=== PATIENT | female | born 1955 | race Caucasian/White ===

== ENCOUNTER → 2016-09-13 | Outpatient (REF) | payer OTHER | LOC: M SFHCWAGY 09:10 | PROVIDERS: ATTEND Nurse Practitioner Women's Health | DX: Z12.4 Encounter for screening for malignant neoplasm of cervix (principal) ==

== ENCOUNTER → 2016-09-13 | Outpatient (CLI) | payer OTHER ==
--- NOTE | 2016-09-13 11:27 | REPMRS ---
Patient History The patient states she had a clinical breast exam in 08/2016. Patient is postmenopausal and has history of basal cell skin cancer at age 47. Family history of prostate cancer in father at age 85. Digital Woman Screen Mammo: September 13, 2016 - Exam #: [id number] Bilateral CC and MLO view(s) were taken. Technologist: Mindy Fitzgerald, Technologist Prior study comparison: September 09, 2015, digital woman screen mammo performed at [facility] to [facility]. September 03, 2014, digital woman screen mammo performed at [facility]. September 03, 2010, bilateral bilat screen digital mammo performed at [facility] to [facility]. FINDINGS: The breast tissue is heterogeneously dense. This may lower the sensitivity of mammography. There is a moderate amount of heterogeneously dense fibroglandular tissue which is fairly symmetric. There is no interval development of dominant mass, architectural distortion, or clustered microcalcification typical of malignancy. There has been no change in the appearance of the mammogram from the prior studies. ASSESSMENT: BI-RADS/ACR category 1 mammogram. Negative. Recommendation Routine screening mammogram of both breasts in 1 year (for women over age 40). This mammogram was interpreted with the aid of an FDA-approved computer-aided dectection system. Electronically Signed By: Gabriele Escamilla MD 09/13/16 1125
== END ==
LOC: M WHC 08:54
PROVIDERS: ATTEND Nurse Practitioner Women's Health
DX: Z12.31 Encounter for screening mammogram for malignant neoplasm of breast (principal)

== ENCOUNTER → 2017-09-15 | Outpatient (CLI) | payer OTHER | LOC: M WHC 09:11 | DX: M81.0 Age-related osteoporosis without current pathological fracture (principal) ==

== ENCOUNTER → 2017-09-15 | Outpatient (CLI) | payer OTHER | LOC: M WHC 09:17 | DX: Z12.31 Encounter for screening mammogram for malignant neoplasm of breast (principal) ==

== ENCOUNTER → 2017-09-15 | Outpatient (REF) | payer OTHER | LOC: M SFHCWAGY 14:02 | DX: Z12.4 Encounter for screening for malignant neoplasm of cervix (principal); Z12.31 Encounter for screening mammogram for malignant neoplasm of breast ==

== ENCOUNTER → 2017-09-19 | Outpatient (CLI) | payer OTHER | LOC: M WHC 13:52 | DX: D25.9 Leiomyoma of uterus, unspecified (principal) | CPT/HCPCS: 76830 ==

== ENCOUNTER → 2018-09-18 | Outpatient (CLI) | payer OTHER ==
--- NOTE | 2018-09-18 11:15 | REPMRS ---
Patient History The patient states she had a clinical breast exam in 10/03 Family history of prostate cancer at age 85 in father. 3D TOMOSYNTHESIS WAS PERFORMED. Digital Woman Screen Mammo: September 18, 2018 - Exam #: [id number] Bilateral CC and MLO view(s) were taken. Technologist: Nidia Hogan, Technologist Prior study comparison: September 15, 2017, digital woman screen mammo performed at [facility]. September 13, 2016, digital woman screen mammo performed at [facility] to [facility]. FINDINGS: The breast tissue is heterogeneously dense. This may lower the sensitivity of mammography. There has been no change in the appearance of the mammogram from the prior studies. There is a moderate amount of residual fibroglandular tissue which is fairly symmetric. There is no interval development of dominant mass, areas of architectural distortion, or clustered microcalcification typical of malignancy. Assessment: BI-RADS/ACR category 1 mammogram. Negative Mammogram. Recommendation Routine screening mammogram in 1 year (for women over age 40). This mammogram was interpreted with the aid of an FDA-approved computer-aided dectection system. Electronically Signed By: Srini Stafford MD 09/18/18 [id number]
== END ==
LOC: M WHC 09:29
PROVIDERS: ATTEND Nurse Practitioner Women's Health
DX: Z12.31 Encounter for screening mammogram for malignant neoplasm of breast (principal)

== ENCOUNTER → 2019-09-20 | Outpatient (CLI) | payer OTHER ==
--- NOTE | 2019-09-20 12:27 | REPMRS ---
Patient History The patient states she had a clinical breast exam in September 2019.Family history of prostate cancer at age 85 in father. Digital Woman Screen Mammo: September 20, 2019 - Exam #: [id number] Bilateral CC and MLO view(s) were taken. Technologist: Madai Saleh, Technologist Prior study comparison: September 18, 2018, bilateral digital woman screen mammo performed at [facility]. September 15, 2017, digital woman screen mammo performed at [facility]. September 13, 2016, digital woman screen mammo performed at [facility]. FINDINGS: The breast tissue is heterogeneously dense. This may lower the sensitivity of mammography. There is a moderate amount of heterogeneously dense fibroglandular tissue which is fairly symmetric. There is no interval development of dominant mass, architectural distortion, or grouped microcalcification typical of malignancy. There has been no change in the appearance of the mammogram from the prior studies. 3-D tomosynthesis shows no additional findings. Assessment: BI-RADS/ACR category 1 mammogram. Negative Mammogram. Recommendation Routine screening mammogram of both breasts in 1 year (for women over age 40). This patient's Lifetime Breast Cancer RIsk is estimated at 9.1 %. This mammogram was interpreted with the aid of an FDA-approved computer-aided dectection system. Electronically Signed By: Gabriele Escamilla MD 09/20/19 [id number]
== END ==
LOC: M WHC 10:02
PROVIDERS: ATTEND Nurse Practitioner Women's Health
DX: Z12.31 Encounter for screening mammogram for malignant neoplasm of breast (principal); Z80.42 Family history of malignant neoplasm of prostate

== ENCOUNTER → 2020-09-22 | Outpatient (CLI) | payer OTHER ==
--- NOTE | 2020-09-22 11:42 | REPMRS ---
Patient History The patient states she had a clinical breast exam in September 2020. Family history of prostate cancer at age 85 in father. 3D TOMOSYNTHESIS WAS PERFORMED. [facility]%. Volpara breast density b. Digital Woman Screen Mammo: September 22, 2020 - Exam #: [id number] Bilateral CC and MLO view(s) were taken. Technologist: Shelly Bloom, Technologist Prior study comparison: September 20, 2019, bilateral digital woman screen mammo performed at [facility]. September 18, 2018, bilateral digital woman screen mammo performed at [facility]. FINDINGS: There are scattered fibroglandular densities. There has been no change in the appearance of the mammogram from the prior studies. There is a mild amount of residual fibroglandular tissue which is fairly symmetric. There is no interval development of dominant mass, architectural distortion, or clustered microcalcification suggestive of malignancy. Assessment: BI-RADS/ACR category 1 mammogram. Negative Mammogram. Recommendation Routine screening mammogram in 1 year (for women over age 40). This mammogram was interpreted with the aid of an FDA-approved computer-aided dectection system. Electronically Signed By: Srini Stafford MD 09/22/20 [id number]
== END ==
LOC: M WHC 09:53
PROVIDERS: ATTEND Nurse Practitioner Women's Health
DX: Z12.31 Encounter for screening mammogram for malignant neoplasm of breast (principal)

== ENCOUNTER → 2020-09-22 | Outpatient (REF) | payer OTHER | LOC: M SFHCWAGY 14:24 | PROVIDERS: ATTEND Nurse Practitioner Women's Health | DX: Z12.4 Encounter for screening for malignant neoplasm of cervix (principal); Z77.9 Other contact with and (suspected) exposures hazardous to health | CPT/HCPCS: 87624; G0123 ==

== ENCOUNTER 2021-08-11 12:19 | Outpatient (RCR) | payer OTHER | END 2021-08-17 | LOC: M PT 12:19 | PROVIDERS: ATTEND Otolaryngology | DX: M26.603 Bilateral temporomandibular joint disorder, unspecified (principal) ==

== ENCOUNTER 2021-09-11 12:45 | Outpatient (RCR) | payer OTHER | END 2021-09-14 | LOC: M PT 12:45 | PROVIDERS: ATTEND Otolaryngology | DX: M26.603 Bilateral temporomandibular joint disorder, unspecified (principal) ==

== ENCOUNTER 2021-10-06 12:45 | Outpatient (RCR) | payer OTHER | END 2021-10-15 | LOC: M PT 12:45 | PROVIDERS: ATTEND Otolaryngology | DX: M26.603 Bilateral temporomandibular joint disorder, unspecified (principal) ==

== ENCOUNTER → 2021-12-21 | Outpatient (CLI) | payer OTHER | LOC: M WHC 11:25 | PROVIDERS: ATTEND Obstetrics & Gynecology | DX: Z12.31 Encounter for screening mammogram for malignant neoplasm of breast (principal); N63.10 Unspecified lump in the right breast, unspecified quadrant ==

== ENCOUNTER → 2022-01-05 | Outpatient (CLI) | payer OTHER | LOC: M WHC 12:59 | PROVIDERS: ATTEND Obstetrics & Gynecology | DX: R92.8 Other abnormal and inconclusive findings on diagnostic imaging of breast (principal) | CPT/HCPCS: 77065; G0279 ==

== ENCOUNTER → 2022-12-16 | Outpatient (CLI) | payer MEDICARE, OTHER | LOC: M PLAIMG 15:10 | PROVIDERS: ATTEND Family Medicine | DX: H53.8 Other visual disturbances (principal); R25.1 Tremor, unspecified; H42 Glaucoma in diseases classified elsewhere ==

== ENCOUNTER → 2023-01-07 | Outpatient (CLI) | payer MEDICARE, OTHER | LOC: M WHC 11:00 | PROVIDERS: ATTEND Nurse Practitioner Women's Health | DX: Z12.31 Encounter for screening mammogram for malignant neoplasm of breast (principal); Z78.0 Asymptomatic menopausal state; M85.88 Other specified disorders of bone density and structure, other site; M85.851 Other specified disorders of bone density and structure, right thigh; M85.852 Other specified disorders of bone density and structure, left thigh ==

== ENCOUNTER → 2023-01-07 | Outpatient (REF) | payer OTHER, MEDICARE | LOC: M SFHCWAGY 14:53 | PROVIDERS: ATTEND Nurse Practitioner Women's Health | DX: Z12.4 Encounter for screening for malignant neoplasm of cervix (principal) | CPT/HCPCS: 87624; G0123 ==